=== PATIENT | female | born 2000 | race Caucasian/White ===

== ENCOUNTER 2019-05-01 19:33 | Emergency (ER) | payer OTHER ==
[~2019-05-01] VITALS: Ht 152.4 cm; Wt 68.2 kg
[2019-05-01 19:34] VITALS: BP 133/82
[2019-05-01] MEDS ORDERED: BACTRIM 160MG/800MG DS TAB PO ONE (20:15)
[2019-05-01] MEDS ORDERED: metroNIDAZOLE (FLAGYL) 500 MG TAB PO ONE (20:15)
[2019-05-01] MEDS ORDERED: FLAG500T PO (20:26)
[2019-05-01] MEDS ORDERED: BACT800T5 PO (20:26)
== END 2019-05-01 20:44 | disposition home or self-care (01) ==
LOC: M ED 19:33
DX: S61.215A Laceration without foreign body of left ring finger without damage to nail, initial encounter (principal); S61.235A Puncture wound without foreign body of left ring finger without damage to nail, initial encounter; W54.0XXA Bitten by dog, initial encounter; Y92.098 Other place in other non-institutional residence as the place of occurrence of the external cause; Y93.K9 Activity, other involving animal care; Y99.8 Other external cause status; Z88.0 Allergy status to penicillin